=== PATIENT | male | born 1955 | race Caucasian/White ===

== ENCOUNTER → 2018-07-02 10:30 | Outpatient (CLI) | payer OTHER, SELFPAY ==
--- NOTE | 2018-07-02 10:31 | RAD_ITS ---
STUDY: X-RAY - RIGHT SHOULDER REASON FOR EXAM: Strain injury. TECHNIQUE: 3 view(s) of the shoulder. COMPARISON: None. FINDINGS: Normal glenohumeral articulation. Normal acromioclavicular joint. Normal acromion. Normal humeral head and visualized proximal humerus. The soft tissue structures are unremarkable. There is a small calcified granuloma in the right mid lung. RAD/Shoulder min 2 Views IMPRESSION: Unremarkable x-ray examination of the right shoulder. Electronically Signed: Wang Barclay MD at 13:15 EDT Tel , Service support ,
== END ==
PROVIDERS: Visit Provider Orthopaedic Surgery
DX: M25.511 Pain in right shoulder (principal)
CPT/HCPCS: 73030

== ENCOUNTER → 2018-07-11 08:01 | Outpatient (CLI) | payer OTHER, SELFPAY ==
--- NOTE | 2018-07-11 08:01 | MRI_ITS ---
STUDY: MRI RIGHT SHOULDER REASON FOR EXAM: Male, 63 years old. Injury, pain TECHNIQUE: Standardized fat and water weighted pulse sequences were obtained in all 3 orthogonal planes. COMPARISON: X-ray 07/02/2018 FINDINGS: There is thickening with abnormal signal at the infraspinatus and supraspinatus tendons. There is focal full-thickness tear at the insertion anteriorly at the footprint with a gap measuring approximately 1 x 1 cm. There is fluid in the subacromion subdeltoid bursa and glenohumeral joint (image 6, 10, 11, 12, 13/20 coronal T2 fat sat, 5/22 sagittal T2). There is mild atrophy of the supraspinatus musculature (image 17/22 sagittal T2). There is osteoarthritis of the acromial clavicular joint with osteophytic impingement and subacromial space (image 11/20 coronal T2 fat sat). There is thickening with abnormal signal at the intra-articular long biceps tendon (image 6, 7, 8/ axial proton density fat-sat). Normal glenohumeral articulation. Normal humeral head and visualized proximal humerus. Normal biceps labral complex. Normal labrum. Normal capsulo- ligamentous complex. Normal rotator interval. Normal visualized coracohumeral and coracoacromial ligaments. Normal quadrilateral space. Normal axillary space. Normal deltoid muscle. Normal trapezius muscle. MRI/Upper Ext Joint Only(Routine) IMPRESSION: Rotator cuff tendinosis with focal full-thickness tear of the supraspinatus tendon insertion Intra-articular long biceps tendinosis Osteoarthritis of the acromioclavicular joint with osteophytic impingement of the subacromial space Electronically Signed: Mike Lobo MD at 9:58 EDT Tel , Service support ,
== END ==
PROVIDERS: Family Provider Family Medicine; PCP Family Medicine; Visit Provider Orthopaedic Surgery
DX: M75.101 Unspecified rotator cuff tear or rupture of right shoulder, not specified as traumatic (principal)
CPT/HCPCS: 73221

== ENCOUNTER 2018-08-12 06:40 | Day surgery (SDC) | payer OTHER, SELFPAY ==
[2018-08-12] VITALS (7 sets, daily range): BP systolic 162–180; BP diastolic 87–109; PULSE 56–63; RESP 14–16; TEMP 35.8–36.4; O2SAT 93–96; BMI 29.0
--- NOTE | 2018-08-12 | TESH_PTH ---
PATIENT: BAIRON BANUELOS LOC: [facility] U#:[id number] AGE/SX: 63/M ROOM: RE08/12/[address]: Dr. Maria Isabel Duran DO : 1955 BED: DIS: 08/12/2018 SPEC #: [id number] RECD: 08/12/18 13:13 STATUS: ALHeraclio HENRIQUE #: [id number] NIMCO: 08/12/18 00:[address]: Maria Isabel Duran DEPT: SURGICAL PATHOLOGY RECD BY: Shiva Santamaria ENTERED: 08/12/18 13:13 SP TYPE: TENDON OTHR DR: Dr. Maryuri Smith MD Tissues: Tendon and tendon sheath, NOS Procedures: Surgery Specimen Level III HEADER OPERATION: Right arthroscopy shoulder, rotator cuff repair, subacromial PRE-OP DIAGNOSIS: Right rotator cuff tear, subacromial impingement, biceps tendinosis right shoulder TISSUE SUBMITTED: Bicep tendon right MICROSCOPIC DIAGNOSIS Bicep tendon right: A piece of dense fibroconnective tissue with reactive changes, clinically right rotator cuff tear. REBECCA:devin 08/13/18 MICROSCOPIC DESCRIPTION Slides are reviewed. GROSS DESCRIPTION Received in fixative is one container labeled with the patient's name and designated right bicep tendon. The specimen consists of a piece of griffin, indurated tissue measuring 4 x 1 x 0.3 cm. The entire specimen is submitted in one cassette. / REBECCA:devin 08/12/18 TC:5 [facility]: [id number]
--- NOTE | 2018-08-12 06:54 | EKG12_ITS ---
Test Reason : PRE OP Blood Pressure : / mmHG Vent. Rate : 067 BPM Atrial Rate : 067 BPM P-R Int : 214 ms QRS Dur : 082 ms QT Int : 412 ms P-R-T Axes : 034 -08 099 degrees QTc Int : 435 ms Sinus rhythm with 1st degree A-V block Otherwise normal ECG When compared with ECG of 03-SEP-2012 05:13, Inverted T waves have replaced nonspecific T wave abnormality in Lateral leads Confirmed by RAJ ALVAREZ, LEEANN ([id number]), features editor PHOEBE MCINTOSH ([id number]) on 08/14/2018 1:35:49 PM Referred By: Maria Isabel Duran Confirmed By:LEEANN ANTHONY MD
[2018-08-12 07:10] LABS: Hematocrit 46.8 % (40-54); Hemoglobin 15.5 g/dl (13.0-16.5); Mean Corp Hgb Conc 33.1 g/gl (32-36); Mean Corpuscular Hgb 32.6 pg (27.0-32.0); Mean Corpuscular Volume 98.5 fL (80-94); Mean Platelet Vol. 10.2 fl (6.2-12.0); Platelet Count 182 K/mm3 (150-450); RBC Distribution Width CV 13.3 % (11.6-14.6); RBC Distribution Width SD 47.9 fl (35.1-43.9); Red Blood Count 4.75 M/mm3 (4.6-6.2); White Blood Count 4.9 K/mm3 (4.4-11.0)
[2018-08-12 07:17] LABS: Scan Indicated on CBC? Y/N NO
[2018-08-12 07:51] LABS: Bedside Glucose 114 mg/dL (70-110)
[2018-08-12] MEDS: Cefazolin 2 GM in 0.9% Normal Saline 100 ML IV (08:33)
--- NOTE | 2018-08-12 10:25 | DCINST_ITS ---
Discharge Diet: No Restrictions - remove dressings in 4 days and apply bandaids to incision sites, may do pendulums as tolerated, may shower and get incision wet after 4 days, call with concerns, follow up in 2 weeks Discharge Activity: May Not Drive May shower in (days): 1 Ice area for (Minutes): 20 - Every hour while awake. Weight Bearing Status: Weight bearing as tolerated Keep extremity elevated above heart level: Operative Extremity Call your doctor if your incision/area has: Continuous Slow Oozing, Sudden Increased Bleeding, Increased Pain/ Swelling, Increased Redness, Foul Smelling Discharge Call your doctor if you observe: Fever of 101 or Higher, Coldness, Increased Pain, Numbness or Tingling, Change in Color, Calf discomfort Allergies/Adverse Reactions: Allergies lisinopril Allergy (Verified 08/05/18 10:51) coughing Medications to take at Discharge Aspirin E.C. [Ecotrin] 81 mg PO DAILY@0800 04/06/15 Losartan Potassium [Cozaar] 100 mg PO QHS 04/06/15 Pantoprazole Sodium [Protonix] 40 mg PO QHS 04/06/15 Atorvastatin Calcium [Lipitor] 20 mg PO QHS 08/05/18 Metoprolol Tartrate [Lopressor (Beta Trey)] 50 mg PO QHS 08/05/18 Tadalafil [Cialis] 7.5 mg PO DAILY 08/05/18 Oxycodone HCl/Acetaminophen [Percocet 5/325] 1 - 2 tablet PO Q6H PRN PRN 5 Days #40 tablet 08/12/18 Zolpidem Tartrate [Ambien (Generic)] 5 mg PO QHS PRN PRN #14 tablet 08/12/18 The following prescriptions were given: Oxycodone HCl/Acetaminophen [Percocet 5/325] 1 - 2 tablet PO Q6H PRN PRN 5 Days #40 tablet PRN Reason: Pain Zolpidem Tartrate [Ambien (Generic)] 5 mg PO QHS PRN PRN #14 tablet PRN Reason: Insomnia Primary Care Physician: Maryuri Smith MD [Primary Care Provider] - Test Results: Test results from this visit will be discussed in further detail at your follow- up appointment, if applicable. Please Follow Up With: Maria Isabel Duran DO - [phone]
--- NOTE | 2018-08-12 10:25 | PCM.OPRPT ---
Report of Operation Date of Procedure: 08/12/18 Pre-Operative Diagnosis: riight shoulder rotator cuff tear, biceps tendinosis, subacromial impingement Post-Operative Diagnosis: same Surgery/Procedure Performed:: right shoulder arthroscopy, rotator cuff repair, subacromial decompression/acromioplasty, open subpec biceps tenodesis animal cruelty investigator: Sherrie Llanos Type of Anesthesia:: General/Regional Anesthesiologist: Aldo King Specimen's removed: biceps tendon Estimated Blood Loss (mL): none Fluids Replaced: 1300 Description of Procedure: Preop note Patient is a 63-year-old male who tripped over his cat sustained right shoulder pain despite conservative treatment. MRI confirms full-thickness rotator cuff tear biceps tendinosis and bursitis. Risks benefits and alternatives surgery discussed with patient. Risks including but not limited to blood loss, blood clot, infection, neurovascular, failure procedure, loss of life and loss of limb. Patient is aware would like proceed with right shoulder arthroscopy repair is indicated. Operative note Patient seen and examined preoperative holding area. Right shoulder was marked. Patient is brought to the operating room and placed supine on the operating table. Signing signing, anesthesia, antibiotics were administered. The right arm was prepped and draped in usual sterile fashion after beachchair positioning was maintained. Please note that the detention through the beachchair positioning we did recheck his blood pressure which was stable throughout. All bony prominences well-padded SCDs placed on his bilateral lower extremity. We marked out our bony landmarks for our portal placement. Timeout was performed. We then insufflated the joint from the glenohumeral joint from the posterior aspect. He had good return. Then created our posterior portal under direct vision under standard technique. We began our diagnostic arthroscopy. We created an anterior portal under direct visualization. We were able to then probe the biceps and it was actually a SLAP tear at its origin was quite it was unstable. We released the biceps from its origin. Then used a shaver to to debride back the insertion to a stable rim. Sub-subscapularis was intact there were no loose bodies in the inferior recess. The rotator cuff leading edge was a full-thickness tear. We then moved to the subacromial space. We created a lateral portal under direct visualization. Able to visualize extensive bursitis which was throughout his subacromial space. We then used accommodation of a shaver and ablator to resect the thickened bursa that was throughout including the posterior [place] and complaining the undersurface of the acromion as well gently. Please note that we had marked intra-articularly with a 18-gauge spinal needle location of her tear we able to visualize his tear from the subacromial space as well. We completed the tear and a little bit further more posterior in order to get our fiber tape across the entire tear. We placed 2 fiber tape all 4 limbs into the tear and then placed 2 swivel locks and lateral fixation on the outside of the shoulder as this was a leading edge tear and was very amenable to this treatment. Again this is Arthrex. After that we had good coverage of her footprint. We then moved to the open biceps tenodesis. We reprepped the area waited the allotted 3 minutes. We made about a 2 cm incision just distal to the septum to the pec insertion. We did a 15 blade to cut through skin and then tenotomies to dissect down to level of the biceps sheath which was excised the biceps tendon was then brought out of the incision measured with the arm in extension for appropriate length. We truncated the biceps tendon that was extra and sent this to pathology for further evaluation. We then used the Arthrex pec button insertion we drilled unicortical he placed the button flipped the button and then oversewed the tendon to the periosteum with the suture limbs. We then irrigated the incision with copious amounts of sterile saline. The incision was closed with 3-0 Vicryl and running 4-0 Monocryl the portals were closed with interrupted 4-0 nylon stitches. Sterile dressings were applied. Sling was applied. Patient tolerated procedure well patient was transferred to recovery room in stable condition there are no comp occasions. The patient had a preop regional interscalene block. Next Postoperative note Nonweightbearing right arm We will give pictures to family at postop visit in 2 weeks Okay to do [facility] pharmacy has prescriptions Call with increased pain numbness tingling further issues arise This note was generated with [employer] software. It may contain incorrect words, spelling, and punctuation that were not noted in checking the note before signing.
[2018-08-12] MEDS: Mupirocin Ointment 22gm Tube 1 APPLIC (10:35)
== END 2018-08-12 13:11 | disposition home or self-care (01) ==
LOC: SDC 06:41 → AC 06:42
PROVIDERS: Family Provider Family Medicine; PCP Family Medicine; Visit Provider Orthopaedic Surgery
PROC: (CPT 29827; principal; 2018-08-12 08:10)
DX: M75.101 Unspecified rotator cuff tear or rupture of right shoulder, not specified as traumatic (principal); M75.41 Impingement syndrome of right shoulder; M75.21 Bicipital tendinitis, right shoulder; K21.9 Gastro-esophageal reflux disease without esophagitis; E78.00 Pure hypercholesterolemia, unspecified; R73.03 Prediabetes; I10 Essential (primary) hypertension; I25.10 Atherosclerotic heart disease of native coronary artery without angina pectoris; Z95.1 Presence of aortocoronary bypass graft; Z79.82 Long term (current) use of aspirin; Z79.891 Long term (current) use of opiate analgesic; Z79.899 Other long term (current) drug therapy
CPT/HCPCS: 29826; 29827; 29828; 36415; 82962; 85027; 88304; 93005; J7120; J2405

== ENCOUNTER 2018-11-27 16:00 | Outpatient (RCR) | payer OTHER, SELFPAY ==
--- NOTE | 2018-08-28 07:40 | HP.PTEVAL_ITS ---
Patient's Visit Information BAIRON BANUELOS is a 63 year old M referred to Physical Therapy by Maria Isabel Duran DO with a diagnosis of RIGHT REPAIR,SAD,OPEN BICEPS TENDONESIS. Date of Evaluation: 08/27/18 Physical Therapist: Crow Treviño PT, - Visit Plan Frequency: 2-3x /Week Duration: 3 Months Plan: SEE ERASMO QUINTERO FOR CLINICAL PRACTICE. PATIENT UNDERWENT S/P RTC REPAIR,SAD ,OPEN BICEPS TENDONESIS ON Aug,. SLING ANOTHER 4 WEEKS ,NO ACTIVE ELBOW FLEXION - Subjective Subjective: This 63 y/o male presents to physical therapy with right RTC repair ,SAD ,open biceps tendesis on 08/12/[address] Erickson at [facility]. Patient fell downstairs by missing with holding on railing with right UE. Patient 1 week later some discomfort. Seen linda Duran MRI showed 1x1 cm tear supraspinatous. Patient seen today sling another 4weeks no active motion elbow ,driving .Patient has been iceing. Denies parathesia/tingling. Inscion looking good. Patient has limited with all functional ADLS' and unable to use for self hygine.Surgery affects sleeping. Patient surgery RTC has affected QOL and job and all ADL'S. 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 SOCAIL: - Pain Right Shoulder Pain Intensity (Out of 10): 1 Pain Intensity Range: 10 - Objective POSTURE: mild foward posture ,sling support right arm. SKIN: inscion well approximate. EDEMA: well aproximate. NEURO : intact ,denies parathesia/tingling. MMT: NT. PROM: right shoulder flexion 130 degrees,scapation 130 degrees ,ER 70 degrees,IR 50 degrees ,elbow WFL - Goals Goal 1:: Independant with HEP with RTC repair Goal Time Frame: 12-16 Weeks Goal 2:: Patient to improve AROM shoulder flexion 150 ,abduction 150 degrees ,ER 80 dergrees ,IR L1. to improve function. Goal Time Frame: 4-6 Weeks Goal 3:: Patient to improve strength RTC 4/5,4-/5 supraspinatous ,deltoid 3+/5 to imptrove function with ADLS' and activities above 90 degrees ,self hygine. Goal Time Frame: 12-16 Weeks Goal 4:: Patient improve ADLS ,self hygine ,activities above 90 degrees with min limiations Goal Time Frame: 12-16 Weeks Goal 5:: Patient to improve Dash disablity score for arm by 30points to improve QOL. - Rehabilitation Potential Physical Therapy Diagnosis: This 63 y/o male underwent s/p RTC repair supraspinatous with SAD ,bicep tendonesis on 08/12/18 with impairemnt ROM, min pain,strength which impairs ADL'S ,self hygine ,and job demand thus benifit from skilled PT Rehabilitation Potential: Good - Anticipated Interventions Patient/Client Instruction: Educate patient on: Condition, Plan of Care For the Purpose of:: To decrease pain, To increase ROM, To increase oxygenation perfusion, To improve ability to perform ADL's, To increase tolerance to activity/condition/position, To improve performance and independence with ADL's, To improve ability of physical actions for home/community/work/leisure, To improve health of tissue, To decrease soft tissue restriction, To increase flexibility/ROM, To improve safety with gait, To improve ability to perform tasks related to life management, To improve tolerance to ADL's Therapeutic Exercise to Include: Strength training, Postural training, Flexibilty training, Passive ROM, Active ROM Comment: SEE PROTOCAL GUIDELINES FOR RTC repair and bicep tendonsis For the Purpose of:: To increase ROM, To improve muscle performance and motor function, To improve ability to perform ADL's, To increase tolerance to activity/condition/position, To improve performance and independence with ADL's, To improve ability of physical actions for home/community/work/leisure, To improve health of tissue, To decrease soft tissue restriction, To increase flexibility/ROM, To improve ability to perform tasks related to life management Manual Therapy Techniques to Include: Mobilization, Passive ROM Comment: shoulder,G-H 1-3 For the Purpose of:: To increase ROM, To improve nutrient delivery to tissue, To increase oxygenation perfusion, To improve health of tissue, To decrease soft tissue restriction, To increase flexibility/ROM TENS: Yes IF ES: Yes Cryotherapy (ice pack, ice massage): Yes Thermo therapy (hot pack): Yes For the Purpose of:: To decrease pain, To improve nutrient delivery to tissue, To increase oxygenation perfusion, To improve health of tissue, To decrease soft tissue restriction Thank you for the opportunity to evaluate your patient. For Medicare and Medicare HMO plans, please review the plan of care and approve it. It will need to be FAXED BACK to us at [phone] for Medicare purposes. Please let me know if there are questions or concerns regarding this plan of care. Physician Signature: Date:
--- NOTE | 2018-08-28 07:52 | HP.PTEVAL_ITS ---
Patient's Visit Information BAIRON BANUELOS is a 63 year old M referred to Physical Therapy by Maria Isabel Duran DO with a diagnosis of RIGHT REPAIR,SAD,OPEN BICEPS TENDONESIS. Date of Evaluation: 08/27/18 Physical Therapist: Crow Treviño PT, - Visit Plan Frequency: 2-3x /Week Duration: 3 Months Plan: SEE PROTOCAL GUIDELINES FOR CLINICAL PRACTICE RTC REPAIR/BICEP TENDONESIS. PATIENT UNDERWENT S/P RTC REPAIR,SAD ,OPEN BICEPS TENDONESIS ON Aug,. SLING ANOTHER 4 WEEKS ,NO ACTIVE ELBOW FLEXION - Subjective Subjective: This 63 y/o male presents to physical therapy with right RTC repair ,SAD ,open biceps tendesis on 08/12/[address] Erickson at [facility]. Patient fell downstairs by missing with holding on railing with right UE. Patient 1 week later some discomfort. Seen linda Duran MRI showed 1x1 cm tear supraspinatous. Patient seen MD today sling another 4weeks no active motion elbow ,driving .Patient has been iceing. Denies parathesia/tingling. Inscion looking good. Patient has limited with all functional ADLS' and unable to use for self hygine.Surgery affects sleeping. Patient surgery RTC has affected QOL and job and all ADL'S. 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 SOCAIL: - Pain Right Shoulder Pain Intensity (Out of 10): 1 Pain Intensity Range: 10 - Objective POSTURE: mild foward posture ,sling support right arm. SKIN: inscion well approximate. EDEMA: well aproximate. NEURO : intact ,denies parathesia/tingling. MMT: NT. PROM: right shoulder flexion 130 degrees,scapation 130 degrees ,ER 70 degrees,IR 50 degrees ,elbow WFL - Goals Goal 1:: Independant with HEP with RTC repair Goal Time Frame: 12-16 Weeks Goal 2:: Patient to improve AROM shoulder flexion 150 ,abduction 150 degrees ,ER 80 dergrees ,IR L1. to improve function. Goal Time Frame: 4-6 Weeks Goal 3:: Patient to improve strength RTC 4/5,4-/5 supraspinatous ,deltoid 3+/5 to imptrove function with ADLS' and activities above 90 degrees ,self hygine. Goal Time Frame: 12-16 Weeks Goal 4:: Patient improve ADLS ,self hygine ,activities above 90 degrees with min limiations Goal Time Frame: 12-16 Weeks Goal 5:: Patient to improve Dash disablity score for arm by 30points to improve QOL. - Rehabilitation Potential Physical Therapy Diagnosis: This 63 y/o male underwent s/p RTC repair supraspinatous with SAD ,bicep tendonesis on 08/12/18 with impairemnt ROM, min pain,strength which impairs ADL'S ,self hygine ,and job demand thus benifit from skilled PT Rehabilitation Potential: Good - Anticipated Interventions Patient/Client Instruction: Educate patient on: Condition, Plan of Care For the Purpose of:: To decrease pain, To increase ROM, To increase oxygenation perfusion, To improve ability to perform ADL's, To increase tolerance to activity/condition/position, To improve performance and independence with ADL's, To improve ability of physical actions for home/community/work/leisure, To improve health of tissue, To decrease soft tissue restriction, To increase flexibility/ROM, To improve safety with gait, To improve ability to perform tasks related to life management, To improve tolerance to ADL's Therapeutic Exercise to Include: Strength training, Postural training, Flexibilty training, Passive ROM, Active ROM Comment: SEE PROTOCAL GUIDELINES FOR RTC repair and bicep tendonsis For the Purpose of:: To increase ROM, To improve muscle performance and motor function, To improve ability to perform ADL's, To increase tolerance to activity/condition/position, To improve performance and independence with ADL's, To improve ability of physical actions for home/community/work/leisure, To improve health of tissue, To decrease soft tissue restriction, To increase flexibility/ROM, To improve ability to perform tasks related to life management Manual Therapy Techniques to Include: Mobilization, Passive ROM Comment: shoulder,G-H 1-3 For the Purpose of:: To increase ROM, To improve nutrient delivery to tissue, To increase oxygenation perfusion, To improve health of tissue, To decrease soft tissue restriction, To increase flexibility/ROM TENS: Yes IF ES: Yes Cryotherapy (ice pack, ice massage): Yes Thermo therapy (hot pack): Yes For the Purpose of:: To decrease pain, To improve nutrient delivery to tissue, To increase oxygenation perfusion, To improve health of tissue, To decrease soft tissue restriction Thank you for the opportunity to evaluate your patient. For Medicare and Medicare HMO plans, please review the plan of care and approve it. It will need to be FAXED BACK to us at [phone] for Medicare purposes. Please let me know if there are questions or concerns regarding this plan of care. Physician Signature: Date:
--- NOTE | 2019-03-04 10:01 | HP.PTDCNRP_ITS ---
HP - Discharge Summary (1) - Patient Information BAIRON BANUELOS was seen in my office for initial evaluation on 08/27/18. The following Plan of Care was established for this patient: Initial Frequency: 2-3x /Week Initial Duration: 3 Months - Anticipated Interventions Patient/Client Instruction: Educate patient on: Condition, Plan of Care For the Purpose of:: To decrease pain, To increase ROM, To increase oxygenation perfusion, To improve ability to perform ADL's, To increase tolerance to activity/condition/position, To improve performance and independence with ADL's, To improve ability of physical actions for home/community/work/leisure, To improve health of tissue, To decrease soft tissue restriction, To increase flexibility/ROM, To improve safety with gait, To improve ability to perform tasks related to life management, To improve tolerance to ADL's Therapeutic Exercise to Include: Strength training, Postural training, Flexibilty training, Passive ROM, Active ROM For the Purpose of:: To increase ROM, To improve muscle performance and motor function, To improve ability to perform ADL's, To increase tolerance to activity/condition/position, To improve performance and independence with ADL's, To improve ability of physical actions for home/community/work/leisure, To improve health of tissue, To decrease soft tissue restriction, To increase flexi bility/ROM, To improve ability to perform tasks related to life management Manual Therapy Techniques to Include: Mobilization, Passive ROM Comment: shoulder,G-H 1-3 For the Purpose of:: To increase ROM, To improve nutrient delivery to tissue, To increase oxygenation perfusion, To improve health of tissue, To decrease soft t issue restriction, To increase flexibility/ROM TENS: Yes IF ES: Yes Cryotherapy (ice pack, ice massage): Yes Thermo therapy (hot pack): Yes For the Purpose of:: To decrease pain, To improve nutrient delivery to tissue, To increase oxygenation perfusion, To improve health of tissue, To decrease soft tissue restriction This patient was last seen in our office 11/27/18. Pertinent comments regarding their Physical therapy will appear below: Patient seen for PT for RTC repair with tx focusing on PROM ,AAROM ,STRENGTHENING RTC/POSTURAL EX'S. Patient made good progress with ROM and strength .Patient wanted to be d/c to HEP ON OWN. At this point I will be discontinuing this patient from physical therapy. I would be happy to see this patient again in the future if found appropriate by the physician. Thank you! Crow Treviño, PT, Cert MDT, OCS
== END 2018-11-27 19:00 | disposition home or self-care (01) ==
LOC: PT 16:00
PROVIDERS: Family Provider Family Medicine; PCP Family Medicine; Referring Provider Orthopaedic Surgery; Visit Provider Orthopaedic Surgery
DX: Z98.890 Other specified postprocedural states (principal); M75.21 Bicipital tendinitis, right shoulder
CPT/HCPCS: 97110; 97140; 97162